=== PATIENT | female | born 1960 | race Caucasian/White ===

== ENCOUNTER → 2019-05-05 | Outpatient (CLI) | payer OTHER, BC ==
[~2019-05-05] MED LIST: BUTA1CAP31 PO; CALC-98 PO; CHOL10003 PO; CRESTOR10 MG PO; ESOM40CA PO; GLUC100018 PO; HYDR50TA6 PO; METF10007 PO; METO-247 PO; MULT-681 PO; POTASSIUM PO
[2019-05-05 09:03] LABS: BILIRUBIN,URINE NEGATIVE (NEG); CLARITY,URINE CLEAR; COLOR,URINE YELLOW; NITRITE,URINE NEGATIVE (NEG); PROTEIN,URINE NEGATIVE (NEG-TRACE); UROBILINOGEN,URINE 0.2 mg/dL (0.2 mg/dL)
[2019-05-05 09:12] LABS: SQUAMOUS EPITHELIAL CELL,UR FEW /LPF
[2019-05-05 09:13] LABS: BACTERIA,URINE FEW /HPF (0-FEW); RBC,URINE 0 /HPF (0-2)
[2019-05-05 09:57] LABS: ALBUMIN 3.6 g/dL (3.4-5.0); CALCIUM 8.9 mg/dL (8.5-10.1); CREATININE 0.7 mg/dL (0.6-1.0); GFR 85.9; POTASSIUM 4.2 mmol/L (3.5-5.1)
[2019-05-05 10:09] LABS: BASO % 1 % (0-3); EOS # 0.1 x10^3/uL (0.0-0.7); EOS % 2 % (0-3); HEMATOCRIT 39.8 % (36.0-47.0); HEMOGLOBIN 13.4 g/dL (12.0-15.5); LYMPH % 33 % (24-48); MEAN CORPUSCULAR HEMOGLOBIN 30 pg (25-35); MEAN CORPUSCULAR HGB CONC 34 g/dL (31-37); MEAN CORPUSCULAR VOLUME 90 fL (79-100); MONO # 0.4 x10^3/uL (0.0-1.1); MONO % 6 % (0-9); NEUT # 3.7 x10^3uL (1.8-7.7); NEUT % 59 % (31-73); PLATELET COUNT 286 x10^3/uL (140-400); RED BLOOD COUNT 4.42 x10^6/uL (3.50-5.40); RED CELL DISTRIBUTION WIDTH 13.7 % (11.5-14.5); WHITE BLOOD COUNT 6.2 x10^3/uL (4.0-11.0)
[2019-05-05 10:22] LABS: PROTHROMBIN TIME PATIENT 12.8 SEC (11.7-14.0)
--- NOTE | 2019-05-05 13:40 | EKG ---
[facility] [address] [place] [id number] Test Date: 2019-05-05 Test Time: 13:07:41 Pat Name: CARMEN AUGUSTE Department: Room: Gender: F Periodontist: : 1960 Requested By: ELVIS BURNS Order Number: [id number] Reading MD: Reynaldo Abdalla MD Measurements Intervals [place] Rate: 82 P: 28 DC: 158 QRS: 29 QRSD: 82 T: 25 QT: 378 QTc: 445 Interpretive Statements SINUS RHYTHM POOR R WAVE PROGRESSION, CONSIDER LEAD PLACEMENT NON-SPECIFIC ST/T CHANGES Electronically Signed On 05-06-2019 11:31:53 CDT by Reynaldo Abdalla MD
--- NOTE | 2019-05-05 16:15 | RAD ---
AP and Lateral Views of the Chest 05/05/2019 8:38 AM Indication: Preprocedural Comparison: None Findings: There is no focal consolidation or infiltrate identified. The cardiomediastinal silhouette is within normal limits. There is no evidence of pneumothorax or pleural effusion. No acute osseous abnormalities are identified. Impression: No evidence of acute cardiopulmonary process. Electronically signed by: Frantz Hdez MD (05/05/2019 4:12 PM) [facility] [id number]
[2019-05-06 01:11] LABS: HEMOGLOBIN A1C 7.1 % (4.8-5.6)
== END | disposition home or self-care (01) ==
LOC: SURGPAT 13:05
PROVIDERS: ATTEND Orthopaedic Surgery
DX: Z01.818 Encounter for other preprocedural examination (principal); M17.0 Bilateral primary osteoarthritis of knee; M25.542 Pain in joints of left hand; I10 Essential (primary) hypertension
CPT/HCPCS: 36415; 71046; 80048; 81001; 82040; 82306; 83036; 85025; 85610; 85651; 85730; 87641; 93005

== ENCOUNTER → 2019-06-23 | Outpatient (CLI) | payer OTHER, BC ==
[2019-05-15 07:46] VITALS: BP 145/89
[~2019-06-23] MED LIST changes: +WARF6TAB47 PO
--- NOTE | 2019-06-23 16:01 | RAD ---
LEFT LOWER EXTREMITY ULTRASOUND WITH DOPPLER 06/23/2019 3:00 PM Clinical Information: Left calf pain and swelling. Comparison: None. Technique: Multiple grayscale, color Doppler, and spectral Doppler sonographic images of the lower extremity venous structures were obtained. Findings: Greater saphenous vein is patent. The left common femoral, femoral, and popliteal veins exhibit normal compression, respiratory phasicity, and augmentation. No intraluminal thrombi are identified. Color Doppler flow is demonstrated in the left posterior tibial veins. Impression: 1. No evidence of deep venous thrombosis. Electronically signed by: Tracy Larson MD (06/23/2019 3:59 PM) [id number]
== END | disposition home or self-care (01) ==
LOC: US 14:52
PROVIDERS: ATTEND Physician Assistant
DX: M79.89 Other specified soft tissue disorders (principal)
CPT/HCPCS: 93971

== ENCOUNTER → 2019-09-03 | Outpatient (CLI) | payer OTHER, BC ==
[2019-05-15 07:46] VITALS: BP 145/89
[~2019-09-03] MED LIST changes: +ASPI-630 PO; +FERR325T14 PO; +HYDR-3165 PO; +OLME20TA17 PO; +POTA20TA4 PO; +WARF7.5T48 PO
[2019-09-03 13:40] LABS: BILIRUBIN,URINE NEGATIVE (NEG); CLARITY,URINE CLEAR; COLOR,URINE YELLOW; NITRITE,URINE NEGATIVE (NEG); PROTEIN,URINE NEGATIVE (NEG-TRACE); UROBILINOGEN,URINE 0.2 mg/dL (0.2 mg/dL)
[2019-09-03 13:46] LABS: BACTERIA,URINE MANY /HPF (0-FEW); RBC,URINE 0 /HPF (0-2); SQUAMOUS EPITHELIAL CELL,UR MANY /LPF; WBC,URINE RARE /HPF (0-4)
[2019-09-03 13:47] LABS: BASO % 1 % (0-3); EOS # 0.1 x10^3/uL (0.0-0.7); EOS % 2 % (0-3); HEMATOCRIT 39.1 % (36.0-47.0); HEMOGLOBIN 12.9 g/dL (12.0-15.5); LYMPH # 2.2 x10^3/uL (1.0-4.8); LYMPH % 32 % (24-48); MEAN CORPUSCULAR HEMOGLOBIN 29 pg (25-35); MEAN CORPUSCULAR HGB CONC 33 g/dL (31-37); MEAN CORPUSCULAR VOLUME 87 fL (79-100); MONO # 0.4 x10^3/uL (0.0-1.1); MONO % 6 % (0-9); NEUT # 4.1 x10^3/uL (1.8-7.7); NEUT % 60 % (31-73); PLATELET COUNT 336 x10^3/uL (140-400); RED BLOOD COUNT 4.51 x10^6/uL (3.50-5.40); RED CELL DISTRIBUTION WIDTH 14.3 % (11.5-14.5); WHITE BLOOD COUNT 6.8 x10^3/uL (4.0-11.0)
[2019-09-03 13:54] LABS: PROTHROMBIN TIME PATIENT 13.2 SEC (11.7-14.0)
[2019-09-03 13:55] LABS: ALBUMIN 3.7 g/dL (3.4-5.0); CALCIUM 9.1 mg/dL (8.5-10.1); CREATININE 0.8 mg/dL (0.6-1.0); GFR 73.7; POTASSIUM 3.7 mmol/L (3.5-5.1)
[2019-09-04 07:15] LABS: HEMOGLOBIN A1C 7.1 % (4.8-5.6)
== END | disposition home or self-care (01) ==
LOC: SURGPAT 12:58
PROVIDERS: ATTEND Orthopaedic Surgery
DX: Z01.818 Encounter for other preprocedural examination (principal); M17.0 Bilateral primary osteoarthritis of knee
CPT/HCPCS: 36415; 80048; 81001; 82040; 82306; 83036; 85025; 85610; 85651; 85730; 87086; 87186; 87641